=== PATIENT | female | born 1950 | race Caucasian/White ===

== ENCOUNTER 2021-02-05 00:48 | Emergency (ER) | payer MEDICARE, OTHER ==
[~2021-02-05 00:48] MED LIST: ALLER-TEC10 MG PO; ARICEPT5 MG PO; ASPIRIN EC81 MG PO; CARDIZEM CD300 MG PO; COZAAR50 MG PO; DULOXETINE HCL30 MG PO; ELAVIL 25 MG TA25 MG PO; FLEXERIL 10 MG10 MG PO; FLONASE 0.05% N16 GM; HYDROCHLOROTHIA25 MG PO; IMDUR ER TAB 3030 MG PO; K-DUR TAB 20 M20 MEQ PO; LEFLUNOMIDE20 MG PO; LEVOTHYROXINE50 MCG PO; LEXAPRO10 MG PO; MELOXICAM7.5 MG PO; MULTI-VITAMIN1 EACH PO; NAMENDA10 MG PO; NITROGLYCERIN0.4 MG SL; PLAVIX 75 MG TA75 MG PO; POTASSIUM CHLO20 ME1 PO; PRAVASTATIN SOD10 MG PO; PRAVASTATIN SOD20 MG PO; VITAMIN D31000 UNI1 PO; XELJANZ XR PO; ZETIA10 MG PO
[2021-02-05 01:30] LABS: HEMOGLOBIN 13.2 gm/dl (12.3-15.3); RED BLOOD COUNT 4.07 M/UL (4.00-5.10); WHITE BLOOD COUNT 7.5 K/UL (4.5-11.0)
[2021-02-05 01:52] LABS: BUN/CREATININE RATIO 21 (0-10)
[2021-02-05] MEDS ORDERED: K-DUR TAB 10 M10 MEQ PO (03:07)
== END 2021-02-05 04:45 | disposition home or self-care (01) ==
LOC: ER1 00:48
PROVIDERS: Family Medicine
DX: F03.90 Unspecified dementia, unspecified severity, without behavioral disturbance, psychotic disturbance, mood disturbance, and anxiety (principal)
CPT/HCPCS: 70450; 71045; 80053; 80307; 81001; 83605; 83690; 84439; 84443; 85025; 87040; 96374; 99285; G0480; J3480; J7030

== ENCOUNTER → 2021-02-27 | Outpatient (CLI) | payer MEDICARE, OTHER ==
[~2021-02-27] MED LIST changes: +K-DUR TAB 10 M10 MEQ PO
== END ==
LOC: MRI 13:00 → MAMO 14:00
DX: Z12.31 Encounter for screening mammogram for malignant neoplasm of breast (principal); R41.3 Other amnesia; R90.82 White matter disease, unspecified
CPT/HCPCS: 70551; 77063; 77067